=== PATIENT | male | born 1995 ===

== ENCOUNTER 2019-01-14 00:54 | Emergency (ER) | payer BC ==
[2019-01-14 01:18] VITALS: BMI 24.2
[2019-01-14] MEDS ORDERED: cefTRIAXone (Rocephin) 250 mg Inj IM STA (01:26)
[2019-01-14 01:35] VITALS: RESP 18; TEMP 98.3; O2SAT 100
--- NOTE | 2019-01-14 01:36 | ED PDOC ---
Arrival/HPI - General Chief Complaint: Abdominal Pain Time Seen by Provider: 01/14/19 01:02 Historian: Patient - History of Present Illness Narrative History of Present Illness (Text): 01/14/19 01:27 23 year old male, with no significant past medical history, presents to the emergency department with dysuria symptoms. Patient states he had chlamydia 1 year ago. Patient informs he feels he is having the same symptoms. Patient informs he is sexually active. Patient denies any fevers, chills, headache, dizziness, chest pain, shortness of breath, cough, diaphoresis, abdominal pain, nausea, vomiting, diarrhea, back pain, neck pain, or any other complaint. Time/Duration: 24 hours Symptom Onset: Gradual Symptom Course: Unchanged Quality: Burning Activities at Onset: Light Context: Home Past Medical History - Provider Review Nursing Documentation Reviewed: Yes - Genitourinary/Gynecological Other/Comment: hx chlamydia - Psychiatric Hx Substance Use: No - Anesthesia Hx Anesthesia: No Hx Anesthesia Reactions: No Hx Malignant Hyperthermia: No Family/Social History - Physician Review Nursing Documentation Reviewed: Yes Family/Social History: No Known Family HX Smoking Status: Current Some Days Smoker Hx Alcohol Use: Yes Frequency of alcohol use: Socially Hx Substance Use: No Allergies/Home Meds Allergies/Adverse Reactions: Allergies No Known Allergies Allergy (Verified 01/14/19 01:18) Home Medications: Home Meds Medication Instructions Recorded Confirmed No Known Home Med 01/14/19 01/14/19 Review of Systems - Physician Review All systems were reviewed & negative as marked: Yes - Review of Systems Cardiovascular: absent: Chest Pain Neurological: absent: Headache Physical Exam - Physical Exam Narrative Physical Exam (Text): 01/14/19 01:37 Constitutional: No acute distress. Head: Normocephalic. Atraumatic. Eyes: PERRL. ENT: Moist mucous membranes. Neck: Supple. Cardiovascular: Regular rate. Chest: No tenderness. Respiratory: Clear to auscultation bilaterally. GI: Soft. Nontender. Nondistended. Back: No CVA tenderness. Musculoskeletal: No tenderness or swelling of extremities. Skin: No rash. Neurologic: Alert, no focal deficit. Medical Decision Making ED Course and Treatment: 01/14/19 01:39 Impression: 23 year old male presents with dysuria. Plan: -- Chlamydia/GC RNA -- Zithromax -- Rocephin - Scribe Statement The provider has reviewed the documentation as recorded by the Travibnazanin Poon Provider Scribe Attestation: All medical record entries made by the Scribe were at my direction and personally dictated by me. I have reviewed the chart and agree that the record accurately reflects my personal performance of the history, physical exam, medical decision making, and the department course for this patient. I have also personally directed, reviewed, and agree with the discharge instructions and disposition. Disposition/Present on Arrival - Present on Arrival Any Indicators Present on Arrival: No History of DVT/PE: No History of Uncontrolled Diabetes: No Urinary Catheter: No History of Decub. Ulcer: No History Surgical Site Infection Following: None - Disposition Have Diagnosis and Disposition been Completed?: Yes Diagnosis: Urethritis Disposition: HOME/ ROUTINE Disposition Time: 01:25 Patient Plan: Discharge Condition: GOOD Discharge Instructions (ExitCare): Sexually-Transmitted Diseases Forms: [facility] ([place])
[2019-01-14] MEDS ORDERED: Lidocaine 1% Inj (20ml) ONE (01:45)
[2019-01-14 03:58] VITALS: BP 118/82; PULSE 80
== END 2019-01-14 02:30 | disposition home or self-care (01) ==
LOC: MERGE 00:54 → ED 00:54
DX: N34.2 Other urethritis (principal)
CPT/HCPCS: 87491; 87591; 96372; 99282; J0696